=== PATIENT | male | born 1940 | race Caucasian/White ===

== ENCOUNTER 2016-12-04 10:25 | Inpatient (IN) | payer MEDICARE, OTHER ==
[~2016-12-04] VITALS: Ht 162.6 cm; Wt 56.8 kg
[2016-12-04 13:03] VITALS: BP 118/69; PULSE 57; TEMP 97
[2016-12-04] MEDS ORDERED: PRINIVIL5 MG PO (13:25)
[2016-12-04] MEDS ORDERED: COREG 3.123.125 MG/T PO (13:25)
[2016-12-04] MEDS ORDERED: INSHUMULINR SQ (13:26)
[2016-12-04] MEDS ORDERED: LASIX 20MG TABL20 MG PO (13:26)
[2016-12-04] MEDS ORDERED: PLAVIX 75MG TAB75 MG PO (13:26)
[2016-12-04] MEDS ORDERED: LIPITOR20 MG PO (13:27)
[2016-12-04] MEDS ORDERED: ASPIRIN 81M81 MG/TA2 PO (13:31)
[2016-12-04 13:36] LABS: MEAN CELL VOLUME 96 fl (80.0-100.0); MEAN CORPUSCULAR HGB CONC 32 g/dl (33.0-37.0); MEAN PLATELET VOLUME 9.4 fl (7.4-10.4); PLATELET COUNT 240 K/mm3 (130-400); RED BLOOD COUNT 3.77 M/mm3 (4.20-5.60); REDCELL DISTRIBUTION WIDTH-CV 15.7 % (11.5-14.5); WHITE BLOOD COUNT 7.8 K/mm3 (4.8-10.8)
[2016-12-04 13:39] LABS: HEMOGLOBIN 11.6 g/dl (13.5-18.0); MEAN CORPUSCULAR HEMOGLOBIN 31 pg (27.0-31.0)
[2016-12-04 13:41] LABS: INR 1.1 (0.8-3.0); PROTHROMBIN TIME 12.2 SECONDS (9.7-12.8)
[2016-12-04 13:48] LABS: CALCIUM 9.5 mg/dL (8.4-10.2); CREATININE, serum 1.5 mg/dL (0.66-1.25)
[2016-12-04 13:51] LABS: POTASSIUM 6.3 mmol/L (3.4-5.0)
[2016-12-04 16:11] LABS: MAGNESIUM 2.4 mg/dL (1.6-2.3)
[2016-12-04 18:02] VITALS: BP 138/47; PULSE 43; TEMP 97.6
[2016-12-04 21:56] VITALS: BP 129/67; PULSE 78; TEMP 97.5
[2016-12-05] VITALS (7 sets, daily range): BP systolic 107–148; BP diastolic 50–82; PULSE 53–79; TEMP 97.5–98.2
[2016-12-05 05:12] LABS: PH 6 (5-8); SQUAMOUS EPITHELIAL None Seen /hpf; URINE APPEARANCE Clear; URINE BACTERIA None Seen /hpf; URINE BILIRUBIN Negative (NEGATIVE); URINE BLOOD Negative (NEGATIVE); URINE COLOR Yellow; URINE GLUCOSE 1+ (NEGATIVE); URINE KETONE Trace (NEGATIVE); URINE RBC 0-2 /hpf; URINE UROBILINOGEN Negative (NEGATIVE); URINE WBC 0-2 /hpf
[2016-12-05 07:50] LABS: CALCIUM 9.6 mg/dL (8.4-10.2); CREATININE, serum 1.23 mg/dL (0.66-1.25); POTASSIUM 5.1 mmol/L (3.4-5.0)
[2016-12-06 01:29] VITALS: BP 104/67; PULSE 69; TEMP 97.8
[2016-12-06 05:43] VITALS: BP 112/40; PULSE 43; TEMP 98.7
[2016-12-06 08:19] LABS: CREATININE, serum 1.56 mg/dL (0.66-1.25); MAGNESIUM 1.9 mg/dL (1.6-2.3); POTASSIUM 4.1 mmol/L (3.4-5.0)
[2016-12-06 10:08] VITALS: BP 105/62; PULSE 69; TEMP 97.8
[2016-12-06 14:25] VITALS: BP 129/63; PULSE 78; TEMP 97.5
[2016-12-06 17:32] VITALS: BP 128/58; PULSE 76; TEMP 98.1
[2016-12-06 21:20] VITALS: BP 95/42; PULSE 45; TEMP 98.1
[2016-12-07] VITALS (10 sets, daily range): BP systolic 108–144; BP diastolic 48–73; PULSE 56–87; TEMP 97.4–98.5
[2016-12-07 07:21] LABS: CALCIUM 9.3 mg/dL (8.4-10.2); CREATININE, serum 1.37 mg/dL (0.66-1.25); POTASSIUM 4.4 mmol/L (3.4-5.0)
[2016-12-08 04:41] VITALS: BP 108/66; PULSE 76; TEMP 98.2
[2016-12-08 10:13] VITALS: BP 102/76; PULSE 66; TEMP 97.6
[2016-12-08] MEDS ORDERED: GLUCOPHAGE500 MG/TAB PO (14:49)
[2016-12-08] MEDS ORDERED: TYLENOL 325MG325 MG PO (14:50)
[2016-12-08 15:17] VITALS: BP 124/80; PULSE 67; TEMP 97.6
== END 2016-12-08 15:30 | disposition home or self-care (01) | DRG 227 ==
LOC: COL.RAD 10:25 → SURG 12:30 → COL.RAD 12:30 → SURG 12-05 12:45 → COL.RAD 12-06 12:30 → SURG 12-07 00:39
PROVIDERS: Internal Medicine; Internal Medicine Interventional Cardiology; Nurse Practitioner Family
PROC: 0JH608Z Insertion of Defibrillator Generator into Chest Subcutaneous Tissue and Fascia, Open Approach (ICD-10-PCS; principal; 2016-12-07)
PROC: 02HK3KZ Insertion of Defibrillator Lead into Right Ventricle, Percutaneous Approach (ICD-10-PCS; 2016-12-07)
PROC: 02H63KZ Insertion of Defibrillator Lead into Right Atrium, Percutaneous Approach (ICD-10-PCS; 2016-12-07)
DX: I13.0 Hypertensive heart and chronic kidney disease with heart failure and stage 1 through stage 4 chronic kidney disease, or unspecified chronic kidney disease (principal); I50.42 Chronic combined systolic (congestive) and diastolic (congestive) heart failure; E87.5 Hyperkalemia; I25.10 Atherosclerotic heart disease of native coronary artery without angina pectoris; E11.22 Type 2 diabetes mellitus with diabetic chronic kidney disease; N18.3 Chronic kidney disease, stage 3 (moderate); E83.41 Hypermagnesemia; I25.5 Ischemic cardiomyopathy; J84.10 Pulmonary fibrosis, unspecified; F17.210 Nicotine dependence, cigarettes, uncomplicated; Z95.5 Presence of coronary angioplasty implant and graft; I73.9 Peripheral vascular disease, unspecified; J44.9 Chronic obstructive pulmonary disease, unspecified
CPT/HCPCS: OP; 99223; 99231-AI; 99232-AI; 99233-AI; C1721; C1894; C1895; C1898; J0690; J1650; J1815; J2250; J3010